=== PATIENT | male | born 1965 | race Caucasian/White ===

== ENCOUNTER → 2019-05-15 14:02 | Outpatient (CLI) | payer OTHER, SELFPAY ==
--- NOTE | 2019-05-15 | DI.MRI.S_ITS ---
PROCEDURE: MR LUMBAR SPINE WO CON INDICATIONS: DISK DISEASE TECHNIQUE: Noncontrast sagittal T1 spin echo and T2 fast echo, sagittal STIR, axial T1 and T2 fast spin echo through the lumbar spine. In cases with scoliosis, additional coronal T2 fast spin echo may be performed. COMPARISON: [facility], CR, L-SPINE 2-3 VIEWS, 06/11/2014, 14:49. [facility], MR, L-SPINE WITHOUT CONTRAST, 04/08/2014, 8:04. [facility], MR, L-SPINE WITHOUT CONTRAST, 03/18/2016, 7:50. FINDINGS: Image quality: Excellent. Alignment and Curvature: There is minimal retrolisthesis at the L3-L4 level and L5-S1 level. Bone Marrow: Marrow is of normal overall signal. No acute vertebral body compression fractures. Spinal Cord: Conus medullaris terminates at the L1 level. Visualized cord demonstrates normal signal and size. Incidental note is made of the fatty filum terminale, as on series 6 image 13 and on series 3 image 8. No findings of cord tethering can be seen. Paraspinous Soft Tissues: No paravertebral masses. T12-L1: Normal appearance. L1-L2: Normal appearance. L2-L3: The disc height is well-preserved. Loss of disc signal is seen at this level. Llyj-wg-zzrjnfie disc bulge is seen. There is mild to moderate bilateral neural foraminal narrowing seen, left worse than right. Mild central canal narrowing is seen. These imaging findings have progressed compared to the prior study. L3-L4: The disc height is well-preserved. Loss of disc signal is seen at this level. Moderate disc bulge is seen, which is eccentric to the left. Moderate bilateral neural foraminal narrowing is seen, left worse than right. Moderate central canal narrowing is seen. These imaging findings have progressed compared to the prior study. L4-L5: Moderate loss of disc height is seen. Loss of disc signal is seen. There is a faintly seen annular fissure posteriorly, as on series 4 image 9. Moderate disc bulge is seen, which is eccentric to the right side. Moderate facet joint hypertrophy is seen. Suwq-[id number]-drgdsjec bilateral neural foraminal narrowing is seen. Mild central canal narrowing is seen. When comparison is made with the prior examination, these findings are similar. L5-S1: Mild loss of disc height is seen. Loss of disc signal is seen. Mild disc bulge is seen, with a mild central disc protrusion. No significant neural foraminal narrowing is seen. Mild central canal narrowing is seen at this level. When comparison is made with the prior examination, these findings are similar. IMPRESSION: Multiple levels of lumbar spine degenerative change are seen, which are mildly progressed at L2-L3 and L3-L4 compared to 2016. Dictated by: Shamir Hernandez M.D. on 05/15/2019 at 14:26 Approved by: Shamir Hernandez M.D. on 05/15/2019 at 14:31
== END ==
PROVIDERS: Visit Provider Orthopaedic Surgery Orthopaedic Surgery of the Spine
DX: M51.36 Other intervertebral disc degeneration, lumbar region (principal)
CPT/HCPCS: 72148